=== PATIENT | male | born 1990 | race Caucasian/White ===

== ENCOUNTER 2021-10-17 02:10 | Emergency (ER) | payer SELFPAY ==
[~2021-10-17] VITALS: Ht 172.7 cm; Wt 86.0 kg
[2021-10-17] MEDS ORDERED: HYDROCODONE/ACETAMINOPHEN 5/325MG TABLET PO ONE (03:15)
[2021-10-17 03:30] VITALS: BP 132/74
[2021-10-17] MEDS ORDERED: TRAM50TA3 MT (04:59)
[2021-10-17] MEDS ORDERED: IBUP-2030 MT (04:59)
== END 2021-10-17 05:19 | disposition home or self-care (01) ==
LOC: ER 02:10
DX: S22.32XA Fracture of one rib, left side, initial encounter for closed fracture (principal); Y04.0XXA Assault by unarmed brawl or fight, initial encounter; Y93.89 Activity, other specified; Y92.148 Other place in prison as the place of occurrence of the external cause
CPT/HCPCS: 71101; 99283